=== PATIENT | male | born 1965 | race African-American/Black ===

== ENCOUNTER 2024-02-07 06:02 | Inpatient (IN) ==
--- NOTE | 2024-02-07 06:51 | Emergency Department Note ---
Impression & Plan Nausea & vomiting, Acute upper abdominal pain, Acute GI bleeding ED Provider Note NAME: MONTRELL ZIMMERMAN AGE: 58 SEX: Male INFORMANT: Patient ED PROVIDER(S): Darius Delvalle MD CHIEF COMPLAINT: vomiting PLAN: Disposition: Admitted Outpatient prescription management: none Referral: None. MEDICAL DECISION MAKING: Patient presented because of vomiting. An IV was established. Patient's ECG was nonacute. He was given a dose of IV Pepcid as well as Protonix. The imaging he showed of his vomitus revealed a fairly significant amount. Patient's hemoglobin revealed a moderate anemia and this was much more pronounced than his prior outpatient labs provided by his through his portal. This is concerning given his recent NSAID and aspirin use. He has not had any melena. I am concerned about an acute upper GI bleed. Discussed further management in the hospital and patient and family are in agreement. [facility] Patient was evaluated in the ER and admitted for further management. Care/management discussed with: none Level of care consideration(s): After review of the information above and other included data, I feel the patient requires escalation of care to admission Triage Nursing notes: reviewed and agree them. Vital Signs: reviewed and remarkable for no significant abnormalities Additional History obtained from: Patient's . She provided information regarding his outpatient labs. She also noted the patient had an outpatient liver cyst and bilateral renal cysts abdominal ultrasound revealing a also seen on CT imaging today. Chronic Medical/Social Conditions affecting care: Polycythemia Prior/ Outside/ External records reviewed: Outpatient laboratory records reviewed and his last hemoglobin was 12.9. Differential Diagnosis: Peptic ulcer disease AVM, coagulopathy, colitis, inflammatory bowel disease, malignancy, Mindy-Morris tear, esophagitis, variceal bleed, gastritis, epistaxis, as well as other pathologies. Diagnostics, independently interpreted by me: ECG: Twelve-lead ECG reveals a normal sinus rhythm at [address] abnormality. No ST elevation or depression. Cardiac Monitoring: Cardiac monitoring ordered by me: The patient was placed on continuous cardiac monitoring and observed. It revealed a normal sinus rhythm at 75 beats per minute without ectopy or evidence of dysrhythmia. Medical decision rules: none Imaging studies: CT imaging reveals hepatic and renal cysts. Radiology noted distal esophageal thickening as well as small hiatal hernia. HPI: 58 year old Male arrives for evaluation of vomiting. this started this morning and was described as clotted blood. The patient also notes the following associated symptoms, nausea, upper abdominal pain, pre-syncope, mild breathing difficulties, sweating, dizziness. The patient has taken no medication for relieving factors. Current pain is rated as 2/10. Pain was 4/10. Pt on aspirin and using naprosyn for the last two weeks due to trigger finger. Pt denies LOC, headache, fevers, chills, visual changes, neck pain, chest pain, back pain, melena, hematochezia, urinary symptoms, numbness, weakness, lymphadenopathy, rash, or other complaints. PAST MEDICAL HISTORY: See Below, polycythemia, htn PAST SURGICAL HISTORY: See Below, SOCIAL HISTORY: See Below, non-smoker HOME MEDICATIONS: See Below ALLERGIES: See Below VITALS: See Below PHYSICAL EXAMINATION: GENERAL: Awake, alert, well-appearing, in no distress HENT: Normocephalic, atraumatic. Oropharynx unremarkable. EYES: Normal conjunctiva. Sclera non-icteric. NECK: Inspection normal. Non-tender. Supple. No nuchal rigidity. FROM. No masses. RESPIRATORY: Clear to auscultation. No wheezes. No rales. Normal respiratory effort. CARDIAC: Normal rate. Normal rhythm. No murmurs. No rubs. Extremities warm and well perfused. Pulses equal. No JVD. GI: Soft, non-distended. Epigastric tenderness to palpation. No rebound or guarding. No masses. RECTAL: Deferred. MUSCULOSKELETAL: Atraumatic. Chest examination reveals no tenderness. The back is symmetrical on inspection without obvious abnormality. There is no CVA tenderness to palpation. No joint edema. LOWER EXTREMITIES: Calves are equal size bilaterally and non-tender. No edema. No discoloration. NEURO: Normal sensorium. No sensory or motor deficits noted. SKIN: No rash or jaundice noted. PROCEDURES: none CRITICAL CARE: none OBSERVATION NOTE: none Past Med/Surg History Medical History Dyslipidemia Essential hypertension Polycythemia Surgical History History of knee surgery History of colonoscopy Family History (Updated 02/07/24 @ 10:02 by Sirisha Hidalgo PA-C) Denies family history of Stomach cancer Colorectal cancer Peptic ulcer disease Social History (Updated 02/07/24 @ 09:41 by Sirisha Hidalgo PA-C) Smoking Status: Never smoker Tobacco Type: Cigars Cigarettes Per Day: Rare cigar (last in Jul); Hx Alcohol Use: Yes Alcohol type: wine Alcohol Intake Frequency: Monthly or Less Hx Substance Use: No Preferred Language: [place]alander Communication Ability: Effective Scientific Artist Required: No Beliefs That Will Affect Care: None Current Living Situation: Spouse Feels Safe at Home: Yes Safety Concerns: Feels Safe At This Time Assistive Devices: None Allergies Allergies Allergy/AdvReac Type Severity Reaction Status Date / Time No Known Allergies Allergy Unverified 02/07/24 06:26 Home Meds Home Medications Medication Instructions Recorded Confirmed amlodipine 10 mg tablet 10 mg PO DAILY 02/07/24 02/07/24 aspirin 81 mg tablet,delayed 81 mg PO DAILY 02/07/24 02/07/24 release atorvastatin 10 mg tablet 10 mg PO Q OTHER DAY 02/07/24 02/07/24 hydrochlorothiazide 25 mg tablet 25 mg PO DAILY 02/07/24 02/07/24 lisinopril 20 mg tablet 20 mg PO DAILY 02/07/24 02/07/24 naproxen 500 mg tablet 500 mg PO DAILY 02/07/24 02/07/24 potassium chloride 20 mEq 20 meq PO DAILY 02/07/24 02/07/24 tablet,extended release(part/cryst) Results & Data (ED) Vital Signs Vital Signs - 24 hr 02/07/24 06:05 02/07/24 06:10 02/07/24 06:36 Temperature 36.9 C Temperature Source Oral Pulse Rate 77 77 Pulse Rate [Apical] Pulse Rate [Left Finger] Pulse Rate from SpO2 Sensor Pulse Rhythm [Apical] Pulse Rhythm [Left Finger] Pulse Strength [Left Finger] Respiratory Rate 18 Respiratory Effort / Characteristics Non-Labored Respiratory Depth Normal Respiratory Pattern Regular Blood Pressure 155/80 H Blood Pressure [Right Arm] Blood Pressure Mean 105 Blood Pressure Mean [Right Arm] Blood Pressure Position [Right Arm] Pulse Oximetry 97 98 Pulse Oximetry [Right Index Finger] Oxygen Delivery Method Room Air Room Air Oxygen Flow Rate Sepsis Recent Fever Within 48 Hours No Sepsis New/Unexplained Change in Mental Status N/A Sepsis Action Taken by Nursing No Action Required 02/07/24 09:01 02/07/24 09:57 02/07/24 09:59 Temperature Temperature Source Pulse Rate 72 Pulse Rate [Apical] Pulse Rate [Left Finger] Pulse Rate from SpO2 Sensor 74 73 Pulse Rhythm [Apical] Pulse Rhythm [Left Finger] Pulse Strength [Left Finger] Respiratory Rate 20 Respiratory Effort / Characteristics Respiratory Depth Respiratory Pattern Blood Pressure 139/71 170/84 H 143/79 H Blood Pressure [Right Arm] Blood Pressure Mean 93 112 100 Blood Pressure Mean [Right Arm] Blood Pressure Position [Right Arm] Pulse Oximetry 94 96 Pulse Oximetry [Right Index Finger] Oxygen Delivery Method Oxygen Flow Rate Sepsis Recent Fever Within 48 Hours Sepsis New/Unexplained Change in Mental Status Sepsis Action Taken by Nursing 02/07/24 10:00 02/07/24 10:11 02/07/24 10:22 Temperature Temperature Source Pulse Rate 74 Pulse Rate [Apical] 71 Pulse Rate [Left Finger] Pulse Rate from SpO2 Sensor 77 Pulse Rhythm [Apical] Pulse Rhythm [Left Finger] Pulse Strength [Left Finger] Respiratory Rate 19 20 Respiratory Effort / Characteristics Non-Labored Spontaneous Respiratory Depth Normal Respiratory Pattern Blood Pressure 148/88 H Blood Pressure [Right Arm] 148/88 H Blood Pressure Mean 108 Blood Pressure Mean [Right Arm] 108 Blood Pressure Position [Right Arm] Pulse Oximetry 95 97 Pulse Oximetry [Right Index Finger] 95 Oxygen Delivery Method Room Air Oxygen Flow Rate Sepsis Recent Fever Within 48 Hours Sepsis New/Unexplained Change in Mental Status Sepsis Action Taken by Nursing 02/07/24 10:30 02/07/24 11:10 02/07/24 12:52 Temperature 36.6 C 36.0 C L Temperature Source Temporal Artery Scan Temporal Artery Scan Pulse Rate 83 Pulse Rate [Apical] 84 Pulse Rate [Left Finger] 82 Pulse Rate from SpO2 Sensor 81 Pulse Rhythm [Apical] Regular Pulse Rhythm [Left Finger] Regular Pulse Strength [Left Finger] Normal Respiratory Rate 23 16 28 H Respiratory Effort / Characteristics Non-Labored Spontaneous Non-Labored Spontaneous Respiratory Depth Normal Normal Respiratory Pattern Regular Regular Blood Pressure 145/74 H Blood Pressure [Right Arm] 146/91 H 156/85 H Blood Pressure Mean 97 Blood Pressure Mean [Right Arm] 109 108 Blood Pressure Position [Right Arm] Sitting Semi-fowlers Pulse Oximetry 94 94 95 Pulse Oximetry [Right Index Finger] Oxygen Delivery Method Room Air Oxymask Oxygen Flow Rate 4 Sepsis Recent Fever Within 48 Hours Sepsis New/Unexplained Change in Mental Status Sepsis Action Taken by Nursing 02/07/24 13:00 02/07/24 13:10 02/07/24 13:20 Temperature Temperature Source Pulse Rate Pulse Rate [Apical] 87 89 85 Pulse Rate [Left Finger] Pulse Rate from SpO2 Sensor Pulse Rhythm [Apical] Regular Regular Regular Pulse Rhythm [Left Finger] Pulse Strength [Left Finger] Respiratory Rate 30 H 26 H 19 Respiratory Effort / Characteristics Non-Labored Spontaneous Non-Labored Spontaneous Non-Labored Spontaneous Respiratory Depth Shallow Normal Normal Respiratory Pattern Regular Regular Regular Blood Pressure Blood Pressure [Right Arm] 139/93 143/90 H 148/89 H Blood Pressure Mean Blood Pressure Mean [Right Arm] 108 107 108 Blood Pressure Position [Right Arm] Semi-fowlers Semi-fowlers Semi-fowlers Pulse Oximetry 88 L 87 L 92 Pulse Oximetry [Right Index Finger] Oxygen Delivery Method Room Air Room Air Nasal Cannula Oxygen Flow Rate 2 Sepsis Recent Fever Within 48 Hours Sepsis New/Unexplained Change in Mental Status Sepsis Action Taken by Nursing 02/07/24 13:30 Temperature Temperature Source Pulse Rate Pulse Rate [Apical] 90 Pulse Rate [Left Finger] Pulse Rate from SpO2 Sensor Pulse Rhythm [Apical] Regular Pulse Rhythm [Left Finger] Pulse Strength [Left Finger] Respiratory Rate 20 Respiratory Effort / Characteristics Non-Labored Spontaneous Respiratory Depth Normal Respiratory Pattern Regular Blood Pressure Blood Pressure [Right Arm] 145/80 H Blood Pressure Mean Blood Pressure Mean [Right Arm] 101 Blood Pressure Position [Right Arm] Semi-fowlers Pulse Oximetry 92 Pulse Oximetry [Right Index Finger] Oxygen Delivery Method Nasal Cannula Oxygen Flow Rate 2 Sepsis Recent Fever Within 48 Hours Sepsis New/Unexplained Change in Mental Status Sepsis Action Taken by Nursing Laboratory Data 02/07/24 06:15 02/07/24 06:15 Lab Results 02/07/24 02/07/24 Range/Units 06:15 07:00 WBC 10.10 (4.8-10.8) K/ul RBC 4.97 (4.70-6.10) M/uL Hgb 9.9 L (14.0-18.0) g/dl Hct 34.1 L (42.0-52.0) % MCV 68.6 L (80.0-100.0) fL MCH 19.9 L (25.0-34.0) pg MCHC 29.0 L (32.0-36.0) g/dL RDW Std Deviation 44.4 (36.4-46.3) fL RDW Coeff of Carol 18.8 H (11.5-14.5) % Plt Count 521 H (130-400) K/uL MPV 9.5 (9.4-12.4) fL Immature Gran % (Auto) 0.8 % Neut % (Auto) 67.8 % Lymph % (Auto) 22.2 % Union % (Auto) 6.0 % Eos % (Auto) 2.4 % Baso % (Auto) 0.8 % Neut # (Auto) 6.85 H (1.40-6.50) K/uL Lymph # (Auto) 2.24 (1.20-3.40) K/uL Union # (Auto) 0.61 H (0.11-0.59) K/uL Eos # (Auto) 0.24 (0.00-0.50) K/uL Baso # (Auto) 0.08 (0.00-0.20) K/uL Immature Gran # (Auto) 0.08 (0.01-0.20) K/uL Absolute Nucleated RBC 0.02 (0.00-0.12) K/uL Nucleated RBC % (auto) 0.2 % Polychromasia 1+ Microcytosis Present Ovalocytes 1+ PT 13.2 H (9.0-12.0) Seconds INR 1.2 H (0.9-1.1) APTT 23 (21-31) Seconds PTT Ratio 0.8 Sodium 145 (136-145) mmol/L Potassium 3.1 L (3.5-5.1) mmol/L Chloride 107 (98-107) mmol/L Carbon Dioxide 31 (21-32) mmol/L Anion Gap 7 (3-11) BUN 46 H (6-23) mg/dl Creatinine 1.00 (0.6-1.4) mg/dl Est Cr Clr Drug Dosing 113.6 ml/min Est GFR ( Amer) 95.7 ml/min Est GFR (Non-Af Amer) 82.6 ml/min BUN/Creatinine Ratio 46.0 H (10-20) Glucose 153 H (70-99(Fasting)) mg/dl Calcium 8.5 L (8.6-10.3) mg/dl Magnesium 2.1 (1.7-2.4) mg/dl Total Bilirubin 0.5 (0.2-1.0) mg/dl AST 19 (13-39) U/L ALT 17 (7-52) U/L Alkaline Phosphatase 76 (34-104) U/L Troponin I High Sens 14.1 (0-20) pg/ml Total Protein 5.9 L (6.0-8.3) gm/dl Albumin 3.6 (3.4-5.0) gm/dl Globulin 2.3 L (2.5-4.0) gm/dl Albumin/Globulin Ratio 1.6 (0.9-2) Lipase 28 (11-82) U/L Blood Type O Positive Antibody Screen NEGATIVE Administered Medications Pantoprazole Sodium 40 mg/ (Dextrose) 100 mls @ 20 mls/hr IV Q5H GABRIELE Stop: 03/08/24 07:14 Last Admin: 02/07/24 14:07 Dose: 8 mg/hr, 20 mls/hr Documented By: Infusion: 02/07/24 12:24 Dose: Infused Documented By: Admin: 02/07/24 07:24 Dose: 8 mg/hr, 20 mls/hr Documented By: KT Discontinued Medications Sodium Chloride (Nss) 1,000 mls @ 125 mls/hr IV .Q8H STA Stop: 02/07/24 14:35 Last Infusion: 02/07/24 14:58 Dose: Infused Documented By: Admin: 02/07/24 06:58 Dose: 125 mls/hr Documented By: GALINDO Sodium Chloride (Nss) 500 mls @ 999 mls/hr IV .Q31M GABRIELE Stop: 02/07/24 07:15 Last Infusion: 02/07/24 07:26 Dose: Infused Documented By: Admin: 02/07/24 06:58 Dose: 999 mls/hr Documented By: GALINDO Famotidine (Pepcid 20mg Iv Push) 20 mg in 5 mls @ 2.5 mls/min IV NOW STA Stop: 02/07/24 06:42 Last Admin: 02/07/24 06:58 Dose: 2.5 mls/min Documented By: GALINDO Pantoprazole Sodium 80 mg/ (Dextrose) 120 mls @ 480 mls/hr IV NOW ONE Stop: 02/07/24 07:05 Last Infusion: 02/07/24 08:52 Dose: Infused Documented By: Admin: 02/07/24 07:24 Dose: 480 mls/hr Documented By: KT Pantoprazole Sodium 80 mg/ (Dextrose) 120 mls @ 480 mls/hr IV ONE STA Stop: 02/07/24 07:05 Last Admin: 02/07/24 07:27 Dose: Not Given Documented By: KT Potassium Chloride (K Jeronimo / Wtr) 10 meq in 100 mls @ 100 mls/hr IV Q1H GABRIELE Stop: 02/07/24 13:59 Last Admin: 02/07/24 15:24 Dose: 100 mls/hr Documented By: Infusion: 02/07/24 15:07 Dose: Infused Documented By: Admin: 02/07/24 14:07 Dose: 100 mls/hr Documented By: Infusion: 02/07/24 11:35 Dose: Infused Documented By: Admin: 02/07/24 10:35 Dose: 100 mls/hr Documented By: SOCORRO Ioversol (Optiray 320 100ml) 93 ml IV ONCE ONE Stop: 02/07/24 08:31 Last Admin: 02/07/24 08:23 Dose: 93 ml Documented By: RONDA Pantoprazole Sodium (Pantoprazole Bolus/Drip) 1 each IV NOW STA Stop: 02/07/24 06:52 Last Admin: 02/07/24 07:27 Dose: Not Given Documented By: RACHELLE Imaging Data Radiologist's Impression: Abdomen/Pelvis CT 02/07/24 07:[address] WITH IV CONTRAST CT DOSE: 1479.25 mGy.cm HISTORY: Acute upper abdominal pain with GI bleed upper abd pain, gi bleed TECHNIQUE: Multiaxial CT images of the abdomen and pelvis were performed following the IV administration of 93 cc of Optiray, A dose lowering technique was utilized adhering to the principles of ALARA. COMPARISON STUDY: None. FINDINGS: Clear lung bases. No free air. Unremarkable spleen, pancreas and left adrenal gland. 1.3 cm soft tissue attenuating right adrenal gland nodule. Hepatic cysts measure up to 2.8 cm. Patency of the hepatic and portal veins. Hepatic steatosis. Cholelithiasis without CT evidence of acute cholecystitis. Patency of the hepatic and portal veins. Bilateral renal cysts measure up to 7.3 cm on the left. 1.8 cm lesion of the inferior pole right kidney demonstrates [place]oun[place]field of 16. No hydronephrosis. Prostatomegaly. Unremarkable urinary bladder. No abdominal aortic aneurysm or lymphadenopathy. Small hiatal hernia with mild distal esophageal wall thickening. Mild to moderate colonic fecal retention. Normal appendix. 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 No acute fracture. IMPRESSION: 1. No bowel obstruction or bowel wall thickening. Normal appendix. 2. Small hiatal hernia with mild distal esophageal wall thickening. 3. Bilateral renal cysts. A 1.8 cm intermediate density right renal lesion is suggestive of a probable complex cyst. This could be further evaluated a nonemergent renal ultrasound. 4. Prostatomegaly. ACT 112: Negative or not required by law. The above report was generated using voice recognition software. It may contain grammatical, syntax or spelling errors. Electronically signed by: Shola Sweet M.D. 02/07/2024 8:56 AM Discharge Plan Visit Data Chief Complaint: Vomiting Stated Complaint: Vomiting Blood Clots, Dizziness, Abdominal Pain ED Provider: Darius Delvalle Discharge Problem: Nausea & vomiting, Acute upper abdominal pain, Acute GI bleeding Patient Disposition: Admitted As Inpatient Discharge Instructions Interventions: ED Discharge Assessment Last Done: 02/07/24 09:56
[2024-02-07 06:55] LABS: Basophils # (auto) 0.08 K/uL (0.00-0.20); Basophils % (auto) 0.8 %; Eosinophils # (auto) 0.24 K/uL (0.00-0.50); Eosinophils % (auto) 2.4 %; Hematocrit (blood only) 34.1 % (42.0-52.0); Hemoglobin 9.9 g/dl (14.0-18.0); Immature Granulocytes # (auto) 0.08 K/uL (0.01-0.20); Immature Granulocytes % (auto) 0.8 %; Lymphocytes # (auto) 2.24 K/uL (1.20-3.40); Lymphocytes % (auto) 22.2 %; Mean Corpuscular Hemoglobin 19.9 pg (25.0-34.0); Mean Corpuscular Volume 68.6 fL (80.0-100.0); Monocytes # (auto) 0.61 K/uL (0.11-0.59); Neutrophils # (auto) 6.85 K/uL (1.40-6.50); Neutrophils % (auto) 67.8 %; Nucleated RBC # (auto) 0.02 K/uL (0.00-0.12); Nucleated RBC % (auto) 0.2 %; RDW Coefficient of Variation 18.8 % (11.5-14.5); RDW Standard Deviation 44.4 fL (36.4-46.3); Red Blood Count 4.97 M/uL (4.70-6.10)
[2024-02-07] MEDS: FAMOTIDINE 20MG IV PUSH 20 MG/5 ML SYR IV STA (06:58)
[2024-02-07] MEDS: SODIUM CHLORIDE 0.9% 1,000 ML IV STA (06:58)
[2024-02-07] MEDS: SODIUM CHLORIDE 0.9% 500 ML IV SCH (06:58)
[2024-02-07 07:02] LABS: Mean Platelet Volume 9.5 fL (9.4-12.4); Platelet Count 521 K/uL (130-400)
[2024-02-07 07:13] LABS: Albumin Globulin Ratio 1.6 (0.9-2); Albumin Level 3.6 gm/dl (3.4-5.0); Bilirubin,Total 0.5 mg/dl (0.2-1.0); Calcium 8.5 mg/dl (8.6-10.3); Creatinine Clr Calc Pharmacy 113.6 ml/min; Est GFR (African American) 95.7 ml/min; Est GFR (Non-African American) 82.6 ml/min; Globulin 2.3 gm/dl (2.5-4.0); Potassium 3.1 mmol/L (3.5-5.1); Total Protein 5.9 gm/dl (6.0-8.3)
[2024-02-07 07:19] LABS: Troponin I High Sensitivity 14.1 pg/ml (0-20)
[2024-02-07 07:21] LABS: Microcytosis Present; Ovalocytes 1+; Polychromasia 1+
[2024-02-07] MEDS: PANTOprazole 40 MG in DEXTROSE 5% MINI-B 100 ML IV SCH (07:24)
[2024-02-07] MEDS: PANTOprazole 80 MG in DEXTROSE 5% 100 ML IV ONE (07:24)
[2024-02-07] MEDS: PANTOprazole 80 MG in DEXTROSE 5% 100 ML IV STA (07:27)
[2024-02-07] MEDS: PANTOPRAZOLE BOLUS/DRIP IV STA (07:27)
[2024-02-07 07:46] LABS: INR 1.2 (0.9-1.1); Partial Thromboplastin Ratio 0.8; Partial Thromboplastin Time 23 Seconds (21-31); Prothrombin Time 13.2 Seconds (9.0-12.0)
[2024-02-07] MEDS: OPTIRAY 320 100ml IV ONE (08:23)
--- NOTE | 2024-02-07 08:57 | CT Scan Report ---
ABDOMEN AND PELVIS CT WITH IV CONTRAST CT DOSE: 1479.25 mGy.cm HISTORY: Acute upper abdominal pain with GI bleed upper abd pain, gi bleed TECHNIQUE: Multiaxial CT images of the abdomen and pelvis were performed following the IV administrat ion of 93 cc of Optiray, A dose lowering technique was utilized adhering to the principles of ALARA. COMPARISON STUDY: None. FINDINGS: Clear lung bases. No free air. Unremarkable spleen, pancreas and left adrenal gland. 1.3 cm soft tissue attenuating right adrenal gland nodule. Hepatic cysts measure up to 2.8 cm. Patency of t he hepatic and portal veins. Hepatic steatosis. Cholelithiasis without CT evidence of acute cholecyst itis. Patency of the hepatic and portal veins. Bilateral renal cysts measure up to 7.3 cm on the left. 1.8 cm lesion of the inferior pole right kidn ey demonstrates [place]oun[place]field of 16. No hydronephrosis. Prostatomegaly. Unremarkable urinary bladder. No abdominal aortic aneurysm or lymphadenopathy. Small hiatal hernia with mild distal esophageal wall thickening. Mild to moderate colonic fecal reten tion. Normal appendix. 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 No acute fracture. IMPRESSION: 1. No bowel obstruction or bowel wall thickening. Normal appendix. 2. Small hiatal hernia with mild distal esophageal wall thickening. 3. Bilateral renal cysts. A 1.8 cm intermediate density right renal lesion is suggestive of a probabl e complex cyst. This could be further evaluated a nonemergent renal ultrasound. 4. Prostatomegaly. ACT 112: Negative or not required by law. The above report was generated using voice recognition software. It may contain grammatical, syntax o r spelling errors. Electronically signed by: Shola Sweet M.D. 02/07/2024 8:56 AM
--- NOTE | 2024-02-07 09:02 | History & Physical Report ---
Date of Service February 07, 2024 Assessment & Plan (1) Acute GI bleeding: Plan: This is a 58 y/o male with polycythemia, occasional acid reflux, dyslipidemia, and hypertension who presented to the ED today after an episode of hematemesis this morning. He is on chronic aspirin 81 mg daily and recently started on daily Naprosyn for trigger finger (2 weeks ago). His hemoglobin has dropped from 12.9 three weeks ago to 9.9 today. He denies prior history of transfusion Likely source of GI bleed is peptic ulcer disease but differential includes gastritis, esophagitis, malignancy (less likely), varices (unlikely). Currently, he is hemodynamically stable and has had no further episodes of hematemesis. He denies prior GI history such as PUD or esophagitis. - Observe in PCU for evidence of recurrent/ongoing blood loss - Repeat Hgb later today to monitor for stability - Continue pantoprazole gtt for now - Check H. pylori stool antigen - Consult GI for possible scope - will keep NPO until they are able to evaluate - Labs in the AM - CBC, BMP - Transfuse for Hgb <7 - pt agreeable to transfusion if needed (2) Hypokalemia: Plan: Pt has been taking his oral supplement as directed. Mag level 2.1 - Replete IV today - Recheck tomorrow (3) Polycythemia: Plan: Holding aspirin due to GI bleed (4) Essential hypertension: Plan: Chronic, stable Holding oral meds for now - PRN hydralazine for SBP >175 (5) Dyslipidemia: Plan: Chronic, stable Holding statin while NPO Plan Pt seen and reviewed with collaborating physician, Dr. Samayoa. Plan of care discussed and as outlined above. Code Status: Full code DVT Prophylaxis: SCDs due to GI bleed Colin Hidalgo PA-C History of Present Illness Chief Complaint: vomiting blood Primary Care Provider: YAMEL SCHMIDT This is a 58 y/o male from out of the area who has polycythemia, occasional acid reflux, dyslipidemia, and hypertension and who presented to the ED today after an episode of hematemesis this morning. Pt has a history polycythemia for which he takes aspirin daily - his last Hgb three weeks ago was 12.9. He does require phlebotomy approximately every other month. He was recently started on Naprosyn 500 mg by his orthopedic provider for trigger finger. Only taking daily although prescribed BID. Has not noted any GI distress with taking these medications. He reports feeling off last night when he went to bed, didn't feel right overnight but couldn't localize any specific symptoms. Did note some trouble breathing, which he initially attributed to his CPAP but didn't seem to improve much with taking his CPAP off. When got up around 4:30 am, he got dizzy, nauseated, and diaphoretic, then vomited blood. He notes some vague mid-abdominal discomfort and that his abdomen is more distended than usual. Denies heartburn. Uses PRN Tums for occasional reflux but doesn't taking anything consistently for GERD. Denies melena, hematochezia, or change in bowel pattern. Symptoms seem to have improved somewhat since episode of emesis. He notes high life stresses right now. His last colonoscopy was Jan 10, 2020 - per pt, that was normal. He denies prior EGD or history of PUD. No history of H. pylori. Allergies Allergy/AdvReac Type Severity Reaction Status Date / Time No Known Allergies Allergy Unverified 02/07/24 06:26 Home Medications Medication Instructions Recorded Confirmed Type amlodipine 10 mg tablet 10 mg PO DAILY 02/07/24 02/07/24 History aspirin 81 mg tablet,delayed 81 mg PO DAILY 02/07/24 02/07/24 History release atorvastatin 10 mg tablet 10 mg PO Q OTHER DAY 02/07/24 02/07/24 History hydrochlorothiazide 25 mg tablet 25 mg PO DAILY 02/07/24 02/07/24 History lisinopril 20 mg tablet 20 mg PO DAILY 02/07/24 02/07/24 History naproxen 500 mg tablet 500 mg PO DAILY 02/07/24 02/07/24 History potassium chloride 20 mEq 20 meq PO DAILY 02/07/24 02/07/24 History tablet,extended release(part/cryst) Past Med/Surg History Medical History Dyslipidemia Essential hypertension Polycythemia Surgical History History of knee surgery History of colonoscopy Family History (Updated 02/07/24 @ 10:02 by Sirisha Hidalgo PA-C) Denies family history of Stomach cancer Colorectal cancer Peptic ulcer disease Social History (Updated 02/07/24 @ 09:41 by Sirisha Hidalgo PA-C) Smoking Status: Never smoker Tobacco Type: Cigars Cigarettes Per Day: Rare cigar (last in Jul); Hx Alcohol Use: Yes Alcohol type: wine Alcohol Intake Frequency: Monthly or Less Hx Substance Use: No Preferred Language: Spanish Communication Ability: Effective Storage Facility Housekeeper Required: No Beliefs That Will Affect Care: None Current Living Situation: Spouse Feels Safe at Home: Yes Safety Concerns: Feels Safe At This Time Review of Systems Review of Systems: All systems reviewed & are unremarkable except as noted in HPI & below Constitutional: + sweats; no fever and no chills Eyes: no diplopia Ear, Nose, Mouth, Throat: no nasal congestion and no sore throat Respiratory: as per Subjective / HPI; no cough Cardiovascular: + lightheadedness; no chest pain, no pal pitations and no edema Gastrointestinal: as per Subjective / HPI Genitourinary: no dysuria or no hematuria Musculoskeletal: + problem reported (recent corticosteroi d injection for trigger finger) Integumentary: no rash and no yellowing of the skin Neurologic: no syncope and no confusion Physical Exam Physical Exam: For details of the physical exam, please see the physician note. Results & Data Results & Data Vital Signs (Past 12 Hours) Vital Signs Temp Pulse Resp BP Pulse Ox O2 Del Method 02/07/24 06:36 98 Room Air 02/07/24 06:10 77 02/07/24 06:05 36.9 C 77 18 155/80 H 97 Room Air Laboratory Results Laboratory Results - last 24 hr 02/07/24 02/07/24 06:15 07:00 WBC 10.10 RBC 4.97 Hgb 9.9 L Hct 34.1 L MCV 68.6 L MCH 19.9 L MCHC 29.0 L RDW Std Deviation 44.4 RDW Coeff of Carol 18.8 H Plt Count 521 H MPV 9.5 Immature Gran % (Auto) 0.8 Neut % (Auto) 67.8 Lymph % (Auto) 22.2 [place] % (Auto) 6.0 Eos % (Auto) 2.4 Baso % (Auto) 0.8 Neut # (Auto) 6.85 H Lymph # (Auto) 2.24 [place] # (Auto) 0.61 H Eos # (Auto) 0.24 Baso # (Auto) 0.08 Immature Gran # (Auto) 0.08 Absolute Nucleated RBC 0.02 Nucleated RBC % (auto) 0.2 Polychromasia 1+ Microcytosis Present Ovalocytes 1+ PT 13.2 H INR 1.2 H APTT 23 PTT Ratio 0.8 Sodium 145 Potassium 3.1 L Chloride 107 Carbon Dioxide 31 Anion Gap 7 BUN 46 H Creatinine 1.00 Est Cr Clr Drug Dosing 113.6 Est GFR ( Amer) 95.7 Est GFR (Non-Af Amer) 82.6 BUN/Creatinine Ratio 46.0 H Glucose 153 H Calcium 8.5 L Total Bilirubin 0.5 AST 19 ALT 17 Alkaline Phosphatase 76 Troponin I High Sens 14.1 Total Protein 5.9 L Albumin 3.6 Globulin 2.3 L Albumin/Globulin Ratio 1.6 Lipase 28 Blood Type O Positive Antibody Screen NEGATIVE Diagnostic Findings Abdomen/Pelvis CT 02/07/24 07:[address] WITH IV CONTRAST CT DOSE: 1479.25 mGy.cm HISTORY: Acute upper abdominal pain with GI bleed upper abd pain, gi bleed TECHNIQUE: Multiaxial CT images of the abdomen and pelvis were performed following the IV administration of 93 cc of Optiray, A dose lowering technique was utilized adhering to the principles of ALARA. COMPARISON STUDY: None. FINDINGS: Clear lung bases. No free air. Unremarkable spleen, pancreas and left adrenal gland. 1.3 cm soft tissue attenuating right adrenal gland nodule. Hepatic cysts measure up to 2.8 cm. Patency of the hepatic and portal veins. Hepatic steatosis. Cholelithiasis without CT evidence of acute cholecystitis. Patency of the hepatic and portal veins. Bilateral renal cysts measure up to 7.3 cm on the left. 1.8 cm lesion of the inferior pole right kidney demonstrates [place]oun[place] of 16. No hydronephrosis. Prostatomegaly. Unremarkable urinary bladder. No abdominal aortic aneurysm or lymphadenopathy. Small hiatal hernia with mild distal esophageal wall thickening. Mild to moderate colonic fecal retention. Normal appendix. 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 No acute fracture. IMPRESSION: 1. No bowel obstruction or bowel wall thickening. Normal appendix. 2. Small hiatal hernia with mild distal esophageal wall thickening. 3. Bilateral renal cysts. A 1.8 cm intermediate density right renal lesion is suggestive of a probable complex cyst. This could be further evaluated a nonemergent renal ultrasound. 4. Prostatomegaly. ACT 112: Negative or not required by law. The above report was generated using voice recognition software. It may contain grammatical, syntax or spelling errors. Electronically signed by: Shola Sweet M.D. 02/07/2024 8:56 AM Medications Administered Sodium Chloride (Nss) 1,000 mls @ 125 mls/hr IV .Q8H STA Stop: 02/07/24 14:35 Last Admin: 02/07/24 06:58 Dose: 125 mls/hr Documented By: GALINDO Pantoprazole Sodium 40 mg/ (Dextrose) 100 mls @ 20 mls/hr IV Q5H GABRIELE Stop: 03/08/24 07:14 Last Admin: 02/07/24 07:24 Dose: 8 mg/hr, 20 mls/hr Documented By: RACHELLE Discontinued Medications Sodium Chloride (Nss) 500 mls @ 999 mls/hr IV .Q31M GABRIELE Stop: 02/07/24 07:15 Last Infusion: 02/07/24 07:26 Dose: Infused Documented By: Admin: 02/07/24 06:58 Dose: 999 mls/hr Documented By: GALINDO Famotidine (Pepcid 20mg Iv Push) 20 mg in 5 mls @ 2.5 mls/min IV NOW STA Stop: 02/07/24 06:42 Last Admin: 02/07/24 06:58 Dose: 2.5 mls/min Documented By: GALINDO Pantoprazole Sodium 80 mg/ (Dextrose) 120 mls @ 480 mls/hr IV NOW ONE Stop: 02/07/24 07:05 Last Infusion: 02/07/24 08:52 Dose: Infused Documented By: Admin: 02/07/24 07:24 Dose: 480 mls/hr Documented By: RACHELLE Pantoprazole Sodium 80 mg/ (Dextrose) 120 mls @ 480 mls/hr IV ONE STA Stop: 02/07/24 07:05 Last Admin: 02/07/24 07:27 Dose: Not Given Documented By: RACHELLE Ioversol (Optiray 320 100ml) 93 ml IV ONCE ONE Stop: 02/07/24 08:31 Last Admin: 02/07/24 08:23 Dose: 93 ml Documented By: RONDA Pantoprazole Sodium (Pantoprazole Bolus/Drip) 1 each IV NOW STA Stop: 02/07/24 06:52 Last Admin: 02/07/24 07:27 Dose: Not Given Documented By: RACHELLE Supervising Physician Co-Signing Physician Notes I have seen and discussed the case with the collaborating advanced practitioner. I agree with the above H&P. I have reviewed and confirmed the patients medical history, the findings on physical examination, and the patients diagnosis and treatment plan with Rocky CLARK and agree with the information documented. In short, Mr. Tiwari is a 58 year old gentleman with history of HLD, HTN, GERD, and polycythemia with monthly phlebotomy who is admitted for concerns of hematemesis. Patient reports taking daily asa 81mg and newly 500mg naproxen daily for pain in right 4th digit s/p steroid injection. Patient denies any recent epigastric pain. Notes he "felt strange" last evening before waking up and vomiting clots. He denies any fevers, chills, active GERD symptoms, or other acute concerns. No history of EGB. No family history of GI concerns. CScope in 2019 normal. Endorses some bloat. Denies melena, diarrhea, constipation, or other issues. GENERAL APPEARANCE: AxOx4, generally well-appearing male, no acute distress. HEENT: NC, AT. MMM. EOMI, clear conjunctiva, oropharynx clear. NECK: Supple without lymphadenopathy. No stiffness or restricted ROM. HEART: Normal rate and regular rhythm, normal S1/S1, no m/r/g LUNGS: CTAB, moving air well. No crackles or wheezes are heard. ABDOMEN: Soft, nontender, no obvious distention with good bowel sounds heard. BACK: No CVAT, no obvious deformity. EXTREMITIES: Without cyanosis, clubbing or edema. NEUROLOGICAL: Grossly nonfocal. Alert and oriented, moving all 4 extremities. Skin: Warm and dry without any rash. #Hematemesis #Acute blood loss anemia, c/f GIB #Polycythemia Vera #Prior GERD -On daily asa for PCV. Recently on naproxen 500mg daily x 2 weeks -No epigastric pain, nausea vomiting leading up to episode -PPI drip NPO until GI consult Hold meds as above Trend CBC, transfuse for hgb <7 or symptomatic anemia Montior on tele PCU #HTN Hold home PO medications, amlodipine, HCTZ, lisinopril -Hydralazine prn for BP > 175 #Hypokalemia -Replace lytes prn I spent a total of 25 minutes coordinating, documenting, and providing care for this patient excluding time spent in the performance of separately billed services. All of the aforementioned completed outside of collaborating with the assigned advanced practitioner for a full treatment plan. I have reviewed the advanced practitioner's documentation, and I agree with, and take responsibility for the plan of care
[2024-02-07 09:35] LABS: Magnesium 2.1 mg/dl (1.7-2.4)
--- NOTE | 2024-02-07 10:20 | Gastrointestinal Consultation ---
Date of Consultation February 07, 2024 Assessment & Plan (1) Acute GI bleedin58 year old male presenting with one episode of hematemesis, reported 3 pt drop in HGB from recent OP labs, on daily ASA recently started on once daily naproxen. No history of liver disease. DDX discussed: PUD vs gastritis vs other NPO EGD timing to be determined IV PPI bolus and drip Trend H&H Transfuse PRN per primary service Monitor and document GI output We appreciate assistance in the management of any serological abnormality and corrections to include: hemoglobin >7, INR <2, platelets >50,000, potassium levels >3.5 but <5.3, and sodium levels within 5 points of the reference range prior to endoscopic evaluation. Thank you for allowing us to participate in the care of this patient. Please call with any acute changes, questions or concerns. Please see addendum below with additional recommendation from my supervising physician. Supervising Physician Co-Signing Physician Notes I personally saw and evaluated the patient on 02/07/2024 with SIA Pelletier and agree with her findings and plan of care. Abdomen with mild tenderness to palpation. 58 y/o M who lives in [place] visiting here currently admitted with 1 episode of hematemesis earlier this AM. He has a history of polycythemia and HTN. He takes an asa daily and was recently started on Naproxen 1 week ago for a trigger finger which he has been taking daily. This AM he had 1 large episode of hematemesis but none since that time. Denies melena or hematochezia. Hgb on arrival 9.9 which he states is down 3 grams from his baseline. BUN elevated to 46 with Cr of 1. Never had an EGD before but reports a colonoscopy in 2019. Concern for UGI bleeding with hematemesis and elevated BUN. Possibly due to PUD as he has been taking daily NSAIDs. Will plan for urgent EGD today. Remain NPO. PPI 40 mg BID. Trend H/H and transfuse for hgb <7. Stop all NSAIDs. Marjorie Garcia, Gastroenterology and Hepatology History of Present Illness Reason for Consultation: hematemesis Requesting Physician: Danita Attending Physician: Toya Samayoa MD History of Present Illness 58 year old male visiting from [place] with history of polycythemia and hypertension admitted with hematemesis. Family at bedside who aid in history. Notes that he was in his typical state of health until he developed GI upset. Notes this was following by large amount of emesis which was bloody. No black emesis. Notes that he has persistent GI upset. No black or bloody stools ASA daily Taking Naproxen for about a week Drinks wine occasionally No tobacco No EGD Had a colon at OSH in 2019 No reported history of liver disease Allergies Allergy/AdvReac Type Severity Reaction Status Date / Time No Known Allergies Allergy Unverified 02/07/24 06:26 Home Medications Medication Instructions Recorded Confirmed Type amlodipine 10 mg tablet 10 mg PO DAILY 02/07/24 02/07/24 History aspirin 81 mg tablet,delayed 81 mg PO DAILY 02/07/24 02/07/24 History release atorvastatin 10 mg tablet 10 mg PO Q OTHER DAY 02/07/24 02/07/24 History hydrochlorothiazide 25 mg tablet 25 mg PO DAILY 02/07/24 02/07/24 History lisinopril 20 mg tablet 20 mg PO DAILY 02/07/24 02/07/24 History naproxen 500 mg tablet 500 mg PO DAILY 02/07/24 02/07/24 History potassium chloride 20 mEq 20 meq PO DAILY 02/07/24 02/07/24 History tablet,extended release(part/cryst) Patient History Medical History Dyslipidemia Essential hypertension Polycythemia Surgical History History of knee surgery History of colonoscopy Family History (Updated 02/07/24 @ 10:02 by Sirisha Hidalgo PA-C) Denies family history of Stomach cancer Colorectal cancer Peptic ulcer disease Social History (Updated 02/07/24 @ 09:41 by Sirisha Hidalgo PA-C) Smoking Status: Never smoker Tobacco Type: Cigars Cigarettes Per Day: Rare cigar (last in Jul); Hx Alcohol Use: Yes Alcohol type: wine Alcohol Intake Frequency: Monthly or Less Hx Substance Use: No Preferred Language: Japanese Communication Ability: Effective Web Architect Required: No Beliefs That Will Affect Care: None Current Living Situation: Spouse Feels Safe at Home: Yes Safety Concerns: Feels Safe At This Time Review of Systems Review of Systems: All systems reviewed & are unremarkable except as noted in HPI & below Physical Exam Constitutional: WD/WN, vitals as above Respiratory: normal respiratory effort, lungs clear to auscultation Cardiovascular: Rate/Rhythm: regular rate and regular rhythm Gastrointestinal (Abdomen): Percussion/Palpation: abdomen soft; abdomen nontender, no guarding and abdomen not rigid Skin: no rashes, warm and dry Results & Data Vital Signs (Past 12 Hours) Vital Signs Temp Pulse Resp BP Pulse Ox Pulse Ox O2 Del Method 02/07/24 10:11 95 02/07/24 10:00 74 19 148/88 H 95 02/07/24 09:59 143/79 H 96 02/07/24 09:57 170/84 H 94 02/07/24 09:01 72 20 139/71 02/07/24 06:36 98 Room Air 02/07/24 06:10 77 02/07/24 06:05 36.9 C 77 18 155/80 H 97 Room Air Laboratory Results 02/07/24 02/07/24 Range/Units 07:00 06:15 WBC 10.10 (4.8-10.8) K/ul RBC 4.97 (4.70-6.10) M/uL Hgb 9.9 L (14.0-18.0) g/dl Hct 34.1 L (42.0-52.0) % MCV 68.6 L (80.0-100.0) fL MCH 19.9 L (25.0-34.0) pg MCHC 29.0 L (32.0-36.0) g/dL RDW Std Deviation 44.4 (36.4-46.3) fL RDW Coeff of Carol 18.8 H (11.5-14.5) % Plt Count 521 H (130-400) K/uL MPV 9.5 (9.4-12.4) fL Immature Gran % (Auto) 0.8 % Neut % (Auto) 67.8 % Lymph % (Auto) 22.2 % [place] % (Auto) 6.0 % Eos % (Auto) 2.4 % Baso % (Auto) 0.8 % Neut # (Auto) 6.85 H (1.40-6.50) K/uL Lymph # (Auto) 2.24 (1.20-3.40) K/uL [place] # (Auto) 0.61 H (0.11-0.59) K/uL Eos # (Auto) 0.24 (0.00-0.50) K/uL Baso # (Auto) 0.08 (0.00-0.20) K/uL Immature Gran # (Auto) 0.08 (0.01-0.20) K/uL Absolute Nucleated RBC 0.02 (0.00-0.12) K/uL Nucleated RBC % (auto) 0.2 % Polychromasia 1+ Microcytosis Present Ovalocytes 1+ PT 13.2 H (9.0-12.0) Seconds INR 1.2 H (0.9-1.1) APTT 23 (21-31) Seconds PTT Ratio 0.8 Sodium 145 (136-145) mmol/L Potassium 3.1 L (3.5-5.1) mmol/L Chloride 107 (98-107) mmol/L Carbon Dioxide 31 (21-32) mmol/L Anion Gap 7 (3-11) BUN 46 H (6-23) mg/dl Creatinine 1.00 (0.6-1.4) mg/dl Est Cr Clr Drug Dosing 113.6 ml/min Est GFR ( Amer) 95.7 ml/min Est GFR (Non-Af Amer) 82.6 ml/min BUN/Creatinine Ratio 46.0 H (10-20) Glucose 153 H (70-99(Fasting)) mg/dl Calcium 8.5 L (8.6-10.3) mg/dl Magnesium 2.1 (1.7-2.4) mg/dl Total Bilirubin 0.5 (0.2-1.0) mg/dl AST 19 (13-39) U/L ALT 17 (7-52) U/L Alkaline Phosphatase 76 (34-104) U/L Troponin I High Sens 14.1 (0-20) pg/ml Total Protein 5.9 L (6.0-8.3) gm/dl Albumin 3.6 (3.4-5.0) gm/dl Globulin 2.3 L (2.5-4.0) gm/dl Albumin/Globulin Ratio 1.6 (0.9-2) Lipase 28 (11-82) U/L Blood Type O Positive Antibody Screen NEGATIVE
[2024-02-07] MEDS: POTASSIUM CHLORIDE / WTR 10 MEQ/100 ML PLCT IV SCH (10:35)
--- NOTE | 2024-02-07 11:34 | Anesthesiology Consultation ---
Date of Service February 07, 2024 History Surgery Operation Date: 02/07/24 17:00 Proposed Procedures p Esophagogastroduodenoscopy Jose Garcia, Height/Weight Height: 6 ft 2 in Weight: 129.3 kg Allergies Allergy/AdvReac Type Severity Reaction Status Date / Time No Known Allergies Allergy Unverified 02/07/24 06:26 Medications Home Medications Medication Instructions Recorded Confirmed Last Taken amlodipine 10 mg tablet 10 mg PO DAILY 02/07/24 02/07/24 02/06/24 aspirin 81 mg tablet,delayed 81 mg PO DAILY 02/07/24 02/07/24 02/06/24 release atorvastatin 10 mg tablet 10 mg PO Q OTHER DAY 02/07/24 02/07/24 02/05/24 hydrochlorothiazide 25 mg tablet 25 mg PO DAILY 02/07/24 02/07/24 02/06/24 lisinopril 20 mg tablet 20 mg PO DAILY 02/07/24 02/07/24 02/06/24 naproxen 500 mg tablet 500 mg PO DAILY 02/07/24 02/07/24 02/06/24 potassium chloride 20 mEq 20 meq PO DAILY 02/07/24 02/07/24 02/06/24 tablet,extended release(part/cryst) Active Medications Generic Name Dose Route Start Last Admin Trade Name Oumarq PRN Reason Stop Dose Admin Sodium Chloride 1,000 mls @ 125 mls/hr 02/07/24 06:36 02/07/24 06:58 Nss IV 02/07/24 14:35 125 mls/hr .Q8H STA Administration Pantoprazole Sodium 40 mg/ 100 mls @ 20 mls/hr 02/07/24 07:15 02/07/24 07:24 Dextrose IV 03/08/24 07:14 8 mg/hr Q5H GABRIELE 20 mls/hr Administration 8 MG/HR Potassium Chloride 10 meq in 100 mls @ 100 mls/hr 02/07/24 10:00 02/07/24 10:35 K Jeronimo / Wtr IV 02/07/24 13:59 100 mls/hr Q1H GABRIELE Administration NPO Date Last Intake of Fluids: 02/07/24 Time Last Intake of Fluids: 05:00 Date Last Intake of Solids: 02/06/24 Time Last Intake of Solids: 23:00 Past Medical History Medical History Dyslipidemia Essential hypertension Polycythemia Past Family History Family History (Updated 02/07/24 @ 10:02 by Sirisha Hidalgo PA-C) Denies family history of Stomach cancer Colorectal cancer Peptic ulcer disease Past Surgical History Surgical History History of knee surgery History of colonoscopy Social History Smoking Status: Never smoker Smoking cigarettes per day: Rare cigar (last in Jul) Hx Alcohol Use: Yes Alcohol type: wine alcohol intake frequency: a few times a month Hx Substance Use: No Physical Exam Vital Signs Last Vital Signs Temp 36.6 C 02/07/24 11:10 Pulse 82 02/07/24 11:10 Resp 16 02/07/24 11:10 BP 146/91 H 02/07/24 11:10 Pulse Ox 94 02/07/24 11:10 O2 Del Method Room Air 02/07/24 11:10 Testing Laboratory Results 02/07/24 06:15 02/07/24 06:15 PT 13.2 Seconds (9.0-12.0) H 02/07/24 06:15 INR 1.2 (0.9-1.1) H 02/07/24 06:15 APTT 23 Seconds (21-31) 02/07/24 06:15 Blood Type O Positive 02/07/24 07:00 Antibody Screen NEGATIVE 02/07/24 07:00
[2024-02-07] MEDS ORDERED: SUCCINYLCHOLINE CHLORIDE 20 MG/ML 10 ML VIAL IV ONE (11:54)
[2024-02-07] MEDS ORDERED: fentaNYL citrate PF 100 MCG/2 ML VIAL ONE (11:54)
[2024-02-07] MEDS ORDERED: LIDOCAINE 2% 2 ML VIAL/AMP(20MG/ML) INFIL ONE (11:54)
[2024-02-07] MEDS ORDERED: MIDAZOLAM HCL 1 MG/ML 2ML VIAL ONE (11:54)
[2024-02-07] MEDS ORDERED: PROPOFOL IV EMULSION 10 MG/ML 20 ML VIAL IV ONE (11:54)
[2024-02-07] MEDS ORDERED: ONDANSETRON INJ 2 MG/ML 2 ML VIAL ONE (12:33)
--- NOTE | 2024-02-07 12:49 | GI REPORT ---
Patient Name: Escobar Tiwari Procedure Date: 02/07/2024 11:22 AM Date of : 1965 Admit Type: Inpatient Age: 58 Gender: Male Attending MD: Marjorie Garcia DO, Procedure: Upper GI endoscopy Providers: Marjorie Garcia DO Referring MD: Toya Samayoa Md Indications: Hematemesis Patient Profile: This is a 58 year old male. Refer to note in patient chart for documentation of history and physical. Medicines: General Anesthesia Complications: No immediate complications. Estimated Blood Loss: Estimated blood loss was minimal. Procedure: Pre-Anesthesia Assessment: - Prior to the procedure, a History and Physical was performed, and patient medications and allergies were reviewed. The risks and benefits of the procedure and the sedation options and risks were discussed with the patient. All questions were answered and informed consent was obtained. Patient identification and proposed procedure were verified by the physician, the nurse and the cheese cook in the procedure room. Mental Status Examination: alert and oriented. Airway Examination: Mallampati Class II (the uvula but not tonsillar pillars visualized). Respiratory Examination: clear to auscultation. CV Examination: RRR, no murmurs, no S3 or S4. Prophylactic Antibiotics: The patient does not require prophylactic antibiotics. Prior Anticoagulants: The patient has taken no anticoagulant or antiplatelet agents. ASA Grade Assessment: III - A patient with severe systemic disease. After reviewing the risks and benefits, the patient was deemed in satisfactory condition to undergo the procedure. The anesthesia plan was to use general anesthesia. Immediately prior to administration of medications, the patient was re-assessed for adequacy to receive sedatives. The physical status of the patient was re-assessed after the procedure. After obtaining informed consent, the endoscope was passed under direct vision. Throughout the procedure, the patient's blood pressure, pulse, and oxygen saturations were monitored continuously. The Endoscope was introduced through the mouth, and advanced to the second part of duodenum. The upper GI endoscopy was accomplished without difficulty. The patient tolerated the procedure well. Findings: The Z-line was found 40 cm from the incisors. LA Grade D (one or more mucosal breaks involving at least 75% of esophageal circumference) esophagitis with recent bleeding was found 40 cm from the incisors. For hemostasis, one hemostatic clip was successfully placed. 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 There was no bleeding at the end of the procedure. The exam of the esophagus was otherwise normal. Hematin (altered blood/czvcpu-mmpyyy-iktj material) was found in the entire examined stomach. Hematin (altered blood/fvaktq-qjpjek-xnlf material) was found in the duodenal bulb and in the second portion of the duodenum. Impression: - Z-line, 40 cm from the incisors. - LA Grade D esophagitis with recent bleeding. There was one area at the 3 o'clock position that was deeply cratered with a visible vessel with adherent clot. This is the likely source of his hematemesis. 1 Clip was placed. 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 - Hematin (altered blood/rvwgbc-txawmy-niqt material) in the entire stomach. Unable to clear the cardia or fundus to assess for any ulcers here as it was covered in thick clot. - Old clot and blood in the duodenal bulb and in the second portion of the duodenum. - No specimens collected. Recommendation: - [facility] care. - NPO. - IV PPI gtt for the next 48-72 hours and then PPI 40 mg BID for the next 12 weeks at minimum. - Trend H/H and transfuse for hgb <7 - Needs repeat EGD in 12 weeks to assess for esophagitis/ulceration healing. - Stop all NSAIDs immediately - Of note, when patient had intubation there was bleeding around the vocal cords from the intubation and upon scope removal the area around the vocal cords was still bleeding. If he does have any further bloody output/hematemesis it could be due to area around his vocal cords as well. Marjorie Garcia, 02/07/2024 12:49:12 PM Note Initiated On: 02/07/2024 11:22 AM Number of Addenda: 0 I attest to the content of the Intraoperative Record and orders documented therein, exceptions below {[id number]}
--- NOTE | 2024-02-07 12:52 | Communication Note ---
Date of Service: February 07, 2024 EGD completed today with findings below: Impression: - Z-line, 40 cm from the incisors. - LA Grade D esophagitis with recent bleeding. There was one area at the 3 o'clock position at the GE junction that was deeply cratered with a visible vessel with adherent clot. This is the likely source of his hematemesis. 1 Clip was placed. 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 - Hematin (altered blood/punfgm-eewpyk-ivfn material) in the entire stomach. Unable to clear the cardia or fundus to assess for any ulcers here as it was covered in thick clot. - Old clot and blood in the duodenal bulb and in the second portion of the duodenum. - No specimens collected. Recommendation: - Return [facility] to [facility] care. - NPO. - IV PPI gtt for the next 48-72 hours and then PPI 40 mg BID for the next 12 weeks at minimum. - Trend H/H and transfuse for hgb <7 - Needs repeat EGD in 12 weeks to assess for esophagitis/ulceration healing. He lives in [place] so PCP will need to arrange near home. - Stop all NSAIDs immediately - Of note, when patient had intubation there was bleeding around the vocal cords from the intubation and upon scope removal the area around the vocal cords was still bleeding. If he does have any further bloody output/hematemesis it could be due to area around his vocal cords as well. Marjorie Garcia, DO Gastroenterology and Hepatology
--- NOTE | 2024-02-07 13:24 | Anesthesiology Progress Note ---
Date of Service February 07, 2024 Anesthesia Post Procedure Vital Signs Vital Signs: Temp Pulse Pulse Pulse Resp BP BP 02/07/24 13:10 89 26 H 143/90 H 02/07/24 13:00 87 30 H 139/93 02/07/24 12:52 36.0 C L 84 28 H 156/85 H 02/07/24 11:10 36.6 C 82 16 146/91 H 02/07/24 10:30 83 23 145/74 H 02/07/24 10:22 71 20 148/88 H 02/07/24 10:11 02/07/24 10:00 74 19 148/88 H 02/07/24 09:59 143/79 H 02/07/24 09:57 170/84 H 02/07/24 09:01 72 20 139/71 02/07/24 06:36 02/07/24 06:10 77 02/07/24 06:05 36.9 C 77 18 155/80 H Pulse Ox Pulse Ox O2 Del Method O2 Flow Rate 02/07/24 13:10 87 L Room Air 02/07/24 13:00 88 L Room Air 02/07/24 12:52 95 Oxymask 4 02/07/24 11:10 94 Room Air 02/07/24 10:30 94 02/07/24 10:22 97 Room Air 02/07/24 10:11 95 02/07/24 10:00 95 02/07/24 09:59 96 02/07/24 09:57 94 02/07/24 09:01 02/07/24 06:36 98 Room Air 02/07/24 06:10 02/07/24 06:05 97 Room Air Pain Intensity Abdomen: Pain Intensity: 2 Transfer of Care Handoff Completed per policy Notes Mental Status: alert / awake / arousable and participated in evaluation Nausea / Vomiting: adequately controlled Pain: adequately controlled Airway Patency, RR, SpO2: stable & adequate BP & HR: stable & adequate Hydration State: stable & adequate Anesthetic Complications: no major complications apparent and Pt Satisfied with anesthetic care
[2024-02-07 16:27] LABS: Hematocrit (blood only) 34.3 % (42.0-52.0); Hemoglobin 9.7 g/dl (14.0-18.0)
[2024-02-07] MEDS ORDERED: Nursing to Pharmacy Communication SCH (16:45)
[2024-02-08] MEDS: PROPOFOL IV EMULSION 10 MG/ML 20 ML VIAL IV ONE (03:38)
[2024-02-08] MEDS: LIDOCAINE 2% 2 ML VIAL/AMP(20MG/ML) INFIL ONE (03:38)
--- NOTE | 2024-02-08 05:48 | Electrocardiogram Report ---
Test Reason : Blood Pressure : / mmHG Vent. Rate : 074 BPM Atrial Rate : 074 BPM P-R Int : 144 ms QRS Dur : 104 ms QT Int : 404 ms P-R-T Axes : -07 -27 -31 degrees QTc Int : 448 ms Normal sinus rhythm Nonspecific ST and T wave abnormality Possible Lateral infarct Abnormal ECG No previous ECGs available Confirmed by Jude Be ([id number]) on 02/08/2024 5:48:04 AM Referred By: REFERRED SELF Confirmed By:Jude Be
[2024-02-08 07:00] LABS: Hematocrit (blood only) 30.6 % (42.0-52.0); Hemoglobin 8.8 g/dl (14.0-18.0); Mean Corpuscular Hgb Conc 28.8 g/dL (32.0-36.0); Mean Corpuscular Volume 69.4 fL (80.0-100.0); Mean Platelet Volume 9.2 fL (9.4-12.4); Platelet Count 448 K/uL (130-400); RDW Coefficient of Variation 18.8 % (11.5-14.5); RDW Standard Deviation 45.7 fL (36.4-46.3); Red Blood Count 4.41 M/uL (4.70-6.10); White Blood Count 10.63 K/ul (4.8-10.8)
[2024-02-08 07:14] LABS: BUN Creatinine Ratio 26.5 (10-20); Calcium 8.1 mg/dl (8.6-10.3); Creatinine Clr Calc Pharmacy 112.1 ml/min; Est GFR (African American) 93.5 ml/min; Est GFR (Non-African American) 80.6 ml/min; Potassium 2.9 mmol/L (3.5-5.1)
[2024-02-08 07:18] LABS: Basophils # (auto) 0.08 K/uL (0.00-0.20); Basophils % (auto) 0.8 %; Eosinophils # (auto) 0.25 K/uL (0.00-0.50); Eosinophils % (auto) 2.4 %; Immature Granulocytes # (auto) 0.07 K/uL (0.01-0.20); Immature Granulocytes % (auto) 0.7 %; Lymphocytes # (auto) 2.25 K/uL (1.20-3.40); Lymphocytes % (auto) 21.2 %; Monocytes # (auto) 0.63 K/uL (0.11-0.59); Monocytes % (auto) 5.9 %; Neutrophils # (auto) 7.35 K/uL (1.40-6.50); Polychromasia 1+
[2024-02-08] MEDS ORDERED: SODIUM CHLORIDE 0.9% 250 ML IV PRN (08:04)
[2024-02-08] MEDS: POTASSIUM CHLORIDE / WTR 10 MEQ/100 ML PLCT IV SCH (08:13)
[2024-02-08] MEDS: POTASSIUM CHLORIDE CRTAB 20 MEQ TABCR PO ONE ×2 (08:20→15:41)
--- NOTE | 2024-02-08 08:47 | Gastroenterology Progress Note ---
Date of Service February 08, 2024 Assessment & Plan (1) Acute GI bleeding: Plan: 58 year old male presenting with one episode of hematemesis, reported 3 pt drop in HGB from recent OP labs, w/ elevated BUN on daily ASA recently started on once daily naproxen. S/P EGD w/ grade D esophagitis with recent bleeding, visible vessel with adherent clot, clip placed, altered blood/xufcuw-gspooc-easf material Clear liquid diet today, if remains clinically stable, may advance to soft diet tomorrow IV PPI gtt for total of 48-72 hours Then will need PPI 40 mg BID OP EGD at home in about 12 weeks No NSAIDs Trend H&H Monitor and document GI output Transfuse PRN Thank you for allowing us to participate in the care of this patient. Please call with any acute changes, questions or concerns. Please see addendum below with additional recommendation from my supervising physician. Admission and Anticipated Discharge Date Admission Date: February 07, 2024 Supervising Physician Co-Signing Physician Notes Agree with pe and plan as documented. S/p egd yesterday with findings of esophagitis and clip placement. Agree with further plan of care as documented. Subjective S/P EGD Feeling well. No further GI upset. No further report of vomiting blood. Denies any black or bloody stools. EGD 2023: - Z-line, 40 cm from the incisors. - LA Grade D esophagitis with recent bleeding. There was one area at the 3 o'clock position that was deeply cratered with a visible vessel with adherent clot. This is the likely source of his hematemesis. 1 Clip was placed. 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 - Hematin (altered blood/lpgife-anjril-jfcw material) in the entire stomach. Unable to clear the cardia or fundus to assess for any ulcers here as it was covered in thick clot. - Old clot and blood in the duodenal bulb and in the second portion of the duodenum. - No specimens collected. Review of Systems Constitutional: as per Subjective / HPI Physical Exam Constitutional: WD/WN, vitals as above Respiratory: normal respiratory effort, lungs clear to auscultation Cardiovascular: Rate/Rhythm: regular rate Gastrointestinal (Abdomen): Percussion/Palpation: abdomen soft; abdomen nontender, no guarding and abdomen not rigid Skin: no rashes, warm and dry Results & Data Vital Signs (Past 12 Hours) Vital Signs Temp Pulse Pulse Resp BP BP Pulse Ox 02/08/24 07:51 36.7 C 65 18 120/69 93 02/08/24 07:48 60 02/08/24 03:12 36.5 C 60 18 123/66 97 02/07/24 23:12 36.9 C 62 16 122/73 98 02/07/24 22:00 80 O2 Del Method 02/08/24 07:51 Room Air 02/08/24 07:48 02/08/24 03:12 CPAP 02/07/24 23:12 Room Air 02/07/24 22:00 Laboratory Results 02/08/24 02/07/24 02/07/24 Range/Units 05:41 15:49 06:15 WBC 10.63 (4.8-10.8) K/ul RBC 4.41 L (4.70-6.10) M/uL Hgb 8.8 L 9.7 L (14.0-18.0) g/dl Hct 30.6 L 34.3 L (42.0-52.0) % MCV 69.4 L (80.0-100.0) fL MCH 20.0 L (25.0-34.0) pg MCHC 28.8 L (32.0-36.0) g/dL RDW Std Deviation 45.7 (36.4-46.3) fL RDW Coeff of Carol 18.8 H (11.5-14.5) % Plt Count 448 H (130-400) K/uL MPV 9.2 L (9.4-12.4) fL Immature Gran % (Auto) 0.7 % Neut % (Auto) 69.0 % Lymph % (Auto) 21.2 % Finney % (Auto) 5.9 % Eos % (Auto) 2.4 % Baso % (Auto) 0.8 % Neut # (Auto) 7.35 H (1.40-6.50) K/uL Lymph # (Auto) 2.25 (1.20-3.40) K/uL Finney # (Auto) 0.63 H (0.11-0.59) K/uL Eos # (Auto) 0.25 (0.00-0.50) K/uL Baso # (Auto) 0.08 (0.00-0.20) K/uL Immature Gran # (Auto) 0.07 (0.01-0.20) K/uL Polychromasia 1+ Sodium 146 H (136-145) mmol/L Potassium 2.9 L (3.5-5.1) mmol/L Chloride 113 H (98-107) mmol/L Carbon Dioxide 30 (21-32) mmol/L Anion Gap 3 (3-11) BUN 27 H (6-23) mg/dl Creatinine 1.02 (0.6-1.4) mg/dl Est Cr Clr Drug Dosing 112.1 ml/min Est GFR ( Amer) 93.5 ml/min Est GFR (Non-Af Amer) 80.6 ml/min BUN/Creatinine Ratio 26.5 H (10-20) Glucose 89 (70-99(Fasting)) mg/dl Calcium 8.1 L (8.6-10.3) mg/dl Magnesium 2.1 (1.7-2.4) mg/dl Blood Type Recheck Pending
[2024-02-08] MEDS: NSS + 20MEQ KCL 20 MEQ/1,000 ML BAG IV SCH (08:51)
--- NOTE | 2024-02-08 14:49 | Hospitalist Progress Note ---
Date of Service February 08, 2024 Assessment & Plan (1) Acute GI bleeding: Plan: Patient is a 58 yr male with H/O Polycythemia, occasional acid reflux, dyslipidemia, and hypertension who presented with an episode of hematemesis this morning. He is on chronic aspirin 81 mg daily and recently started on daily Naprosyn for trigger finger (2 weeks ago). Acute GI bleed Secondary to grade D esophagitis likely from NSAIDs use --CT ABD:. No bowel obstruction or bowel wall thickening. Normal appendix. Small hiatal hernia with mild distal esophageal wall thickening. Bilateral renal cysts. A 1.8 cm intermediate density right renal lesion is suggestive of a probable complex cyst. This could be further evaluated a nonemergent renal ultrasound. Prostatomegaly. -S/P EGD:The Z-line was found 40 cm from the incisors. LA Grade D (one or more mucosal breaks involving at least 75% of esophageal circumference) esophagitis with recent bleeding was found 40 cm from the incisors. For hemostasis, one hemostatic clip was successfully placed. 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 There was no bleeding at the end of the procedure. The exam of the esophagus was otherwise normal. Hematin (altered blood/tobvux-givcrc-uuxu material) was found in the entire examined stomach. Hematin (altered blood/cwyvpi-vmyxxd-oiub material) was found in the duodenal bulb and in the second portion of the duodenum. -- Continue IV Protonix drip for 48 to 72 hours --Then transition to Protonix 40 mg twice daily Needs repeat EGD as outpatient in 12 weeks Avoid NSAIDs Monitor H&H and transfuse as needed Appreciate GI input Clear liquid diet today Right renal lesion Probable complex cyst Prostatomegaly Incidental findings on CT abdomen as above Needs follow-up as outpatient for further evaluation (2) Hypokalemia: Plan: Chronic hypokalemia Replete and monitor Check magnesium levels (3) Polycythemia: Plan: Holding aspirin due to GI bleed (4) Essential hypertension: Plan: Resume home medications as able Monitor BP (5) Dyslipidemia: Plan: Chronic, stable Resume statin as able Plan DVT Px: SCDs due to GI bleed Code Status: Full code Admission and Anticipated Discharge Date Admission Date: February 07, 2024 Subjective Patient is seen and examined at bedside Denies any bleeding issues today Also denies any chest pain, dyspnea, dizziness, nausea, vomiting, abdominal pain Discussed with patient's visitors at bedise Review of Systems Review of Systems: All systems reviewed & are unremarkable except as noted in Subjective Physical Exam Physical Exam: Physical Exam: Vitals signs as noted above General Appearance:Moderately built and nourished, no apparent distress Head: normocephalic, Atraumatic Eyes: normal inspection, EOMI Neck: supple, Trachea midline Respiratory/Chest: Normal breath sounds, CTA, No accessory muscle use Cardiovascular: S1, S2, No murmur Abdomen/GI:Soft, Non tender, Bowel sounds present Extremities/Musculoskeletal:normal inspection, no edema Neurologic/Psych:AAOX3, grossly no focal neurological deficits Skin: normal color, warm Results & Data Results & Data Vital Signs (Past 12 Hours) Vital Signs Temp Pulse Pulse Resp BP BP Pulse Ox 02/08/24 11:30 36.6 C 68 18 130/75 96 02/08/24 07:51 36.7 C 65 18 120/69 93 02/08/24 07:48 60 02/08/24 03:12 36.5 C 60 18 123/66 97 O2 Del Method 02/08/24 11:30 Room Air 02/08/24 07:51 Room Air 02/08/24 07:48 02/08/24 03:12 CPAP Laboratory Results Short CBC 02/07/24 02/08/24 02/08/24 Range/Units 15:49 05:41 14:31 WBC 10.63 (4.8-10.8) K/ul Hgb 9.7 L 8.8 L 8.5 L (14.0-18.0) g/dl Hct 34.3 L 30.6 L 30.1 L (42.0-52.0) % Plt Count 448 H (130-400) K/uL BMP 02/08/24 05:41 Sodium 146 H Potassium 2.9 L Chloride 113 H Carbon Dioxide 30 BUN 27 H Creatinine 1.02 Glucose 89 Calcium 8.1 L
[2024-02-08 14:50] LABS: Hematocrit (blood only) 30.1 % (42.0-52.0); Hemoglobin 8.5 g/dl (14.0-18.0)
[2024-02-08 15:06] LABS: Magnesium 2.1 mg/dl (1.7-2.4); Potassium 3.2 mmol/L (3.5-5.1)
[2024-02-09 06:22] LABS: Hematocrit (blood only) 29.7 % (42.0-52.0); Hemoglobin 8.4 g/dl (14.0-18.0); Mean Corpuscular Hgb Conc 28.3 g/dL (32.0-36.0); Mean Corpuscular Volume 70.9 fL (80.0-100.0); Mean Platelet Volume 8.9 fL (9.4-12.4); Platelet Count 393 K/uL (130-400); RDW Standard Deviation 46.1 fL (36.4-46.3); Red Blood Count 4.19 M/uL (4.70-6.10)
[2024-02-09 06:38] LABS: Calcium 7.9 mg/dl (8.6-10.3); Creatinine Clr Calc Pharmacy 114.1 ml/min; Est GFR (African American) 95.7 ml/min; Est GFR (Non-African American) 82.6 ml/min; Potassium 3.4 mmol/L (3.5-5.1)
[2024-02-09 08:16] LABS: Ferritin 9.1 ng/ml (8-388)
[2024-02-09] MEDS: POTASSIUM CHLORIDE CRTAB 20 MEQ TABCR PO STA (08:22)
[2024-02-09] MEDS: POTASSIUM CHLORIDE / WTR 10 MEQ/100 ML PLCT IV SCH (08:27)
[2024-02-09] MEDS: IRON SUCROSE 200 MG in 0.9 % SODIUM CHLORIDE 100 ML IV ONE (09:35)
--- NOTE | 2024-02-09 11:56 | Hospitalist Progress Note ---
Date of Service February 09, 2024 Assessment & Plan (1) Acute GI bleeding: (2) Hypokalemia: (3) Polycythemia: (4) Essential hypertension: (5) Dyslipidemia: Plan Mr. Tiwari is58 yr male with history of Polycythemia vera, occasional acid reflux, dyslipidemia, and hypertension who presented on 02/06 with an episode of hematemesis. He is on chronic aspirin 81 mg daily and recently started on daily Naprosyn for trigger finger (2 weeks ago). #Acute blood loss anemia 2/2 acute GI bleed #Grade D esophagitis likely from NSAIDs use, reflux --CT ABD:. No bowel obstruction or bowel wall thickening. Normal appendix. Small hiatal hernia with mild distal esophageal wall thickening. Bilateral renal cysts. A 1.8 cm intermediate density right renal lesion is suggestive of a probable complex cyst. This could be further evaluated a nonemergent renal ultrasound. Prostatomegaly. -S/P EGD:The Z-line was found 40 cm from the incisors. LA Grade D (one or more mucosal breaks involving at least 75% of esophageal circumference) esophagitis with recent bleeding was found 40 cm from the incisors. For hemostasis, one hemostatic clip was successfully placed. 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 There was no bleeding at the end of the procedure. The exam of the esophagus was otherwise normal. Hematin (altered blood/aygypi-fvaskx-xdut material) was found in the entire examined stomach. Hematin (altered blood/ldxrhd-smuqhf-gzax material) was found in the duodenal bulb and in the second portion of the duodenum. -- Continue IV Protonix drip, transition to PO protonix in am BID 12 weeks Needs repeat EGD as outpatient in 12 weeks Avoid NSAIDs Monitor H&H and transfuse as needed Soft diet today GI following, will arrange OP follow up #Iron deficiency Ferritin 9, Iron 19 IV venofer today #Polycythemia Vera -Hct 29.7%, Hgb 8.4 Hold ASA, follow up with Hematology upon discharge #chronic hypokalemia Hold HCTZ Replace prn #HTN Hold home PO medications, Resume amlodipine, Consider c/d HCTZ Resume lisinopril if tolerated -Hydralazine prn for BP > 175 #Right renal lesion, Probable complex cyst #Prostatomegaly Incidental findings on CT abdomen as above Needs follow-up as outpatient for further evaluation DVT Px: SCDs due to GI bleed Code Status: Full code Admission and Anticipated Discharge Date Admission Date: February 07, 2024 Subjective No acute events overnight Reports feeling much better and eager to trial soft diet Denies any nausea or hematemesis, denies any melena or other concerns Physical Exam Constitutional: WD/WN, vitals as above Respiratory: normal respiratory effort, lungs clear to auscultation Cardiovascular: RRR, no murmur, no edema Gastrointestinal (Abdomen): normal bowel sounds, soft, nontender, no hepatosplenomegaly Results & Data Results & Data Vital Signs (Past 12 Hours) Vital Signs Temp Pulse Pulse Resp BP BP Pulse Ox 02/09/24 10:38 36.5 C 73 19 132/81 94 02/09/24 07:27 61 02/09/24 07:24 36.6 C 63 20 110/70 95 02/09/24 03:21 36.6 C 70 16 135/81 99 O2 Del Method 02/09/24 10:38 Room Air 02/09/24 07:27 02/09/24 07:24 CPAP 02/09/24 03:21 Room Air, CPAP Laboratory Results Short CBC 02/08/24 02/09/24 Range/Units 14:31 06:00 WBC 10.20 (4.8-10.8) K/ul Hgb 8.5 L 8.4 L (14.0-18.0) g/dl Hct 30.1 L 29.7 L (42.0-52.0) % Plt Count 393 (130-400) K/uL BMP 02/08/24 02/09/24 14:31 06:00 Sodium 144 Potassium 3.2 L 3.4 L Chloride 112 H Carbon Dioxide 29 BUN 11 Creatinine 1.00 Glucose 100 H Calcium 7.9 L Medications Administered Home Medications Medication Instructions Recorded Confirmed Last Taken amlodipine 10 mg tablet 10 mg PO DAILY 02/07/24 02/07/24 02/06/24 aspirin 81 mg tablet,delayed 81 mg PO DAILY 02/07/24 02/07/24 02/06/24 release atorvastatin 10 mg tablet 10 mg PO Q OTHER DAY 02/07/24 02/07/24 02/05/24 hydrochlorothiazide 25 mg tablet 25 mg PO DAILY 02/07/24 02/07/24 02/06/24 lisinopril 20 mg tablet 20 mg PO DAILY 02/07/24 02/07/24 02/06/24 naproxen 500 mg tablet 500 mg PO DAILY 02/07/24 02/07/24 02/06/24 potassium chloride 20 mEq 20 meq PO DAILY 02/07/24 02/07/24 02/06/24 tablet,extended release(part/cryst) Active Medications Generic Name Dose Route Start Last Admin Trade Name Freq PRN Reason Stop Dose Admin Pantoprazole Sodium 40 mg/ 100 mls @ 20 mls/hr 02/07/24 07:15 02/09/24 10:07 Dextrose IV 03/08/24 07:14 8 mg/hr Q5H GABRIELE 20 mls/hr Infusion 8 MG/HR
[2024-02-10 07:04] LABS: Hematocrit (blood only) 33.6 % (42.0-52.0); Hemoglobin 9.4 g/dl (14.0-18.0); Mean Corpuscular Hemoglobin 19.6 pg (25.0-34.0); Mean Platelet Volume 9.3 fL (9.4-12.4); Nucleated RBC # (auto) 0.03 K/uL (0.00-0.12); Nucleated RBC % (auto) 0.3 %; Platelet Count 463 K/uL (130-400); RDW Coefficient of Variation 19.8 % (11.5-14.5); RDW Standard Deviation 45.9 fL (36.4-46.3); White Blood Count 10.33 K/ul (4.8-10.8)
[2024-02-10 07:25] LABS: BUN Creatinine Ratio 8.8 (10-20); Calcium 8.8 mg/dl (8.6-10.3); Creatinine Clr Calc Pharmacy 111.3 ml/min; Est GFR (African American) 93.5 ml/min; Est GFR (Non-African American) 80.6 ml/min; Magnesium 2.2 mg/dl (1.7-2.4); Potassium 3.2 mmol/L (3.5-5.1)
[2024-02-10] MEDS: POTASSIUM CHLORIDE CRTAB 20 MEQ TABCR PO SCH (08:32)
[2024-02-10] MEDS: amLODIPine BESYLATE 5 MG TAB PO SCH (08:33)
[2024-02-10] MEDS: lisinopril 10 MG TAB PO SCH (08:33)
[2024-02-10] MEDS: PANTOprazole 40 MG TAB PO SCH (12:11)
--- NOTE | 2024-02-10 13:05 | Discharge Summary ---
Discharge Summary Date of Service February 10, 2024 Notes For Next Care Provider Medication Changes From Visit Hold ASA until OP follow up with manager sap Hold HCTZ and discuss investigation of hypokalemia with PCP Continue amlodipine and lisinopril Start pantoprazole 40mg BID Admission HPI Per Admitting Provider This is a 58 y/o [place] who has polycythemia, occasional acid reflux, dyslipidemia, and hypertension and who presented to the ED today after an episode of hematemesis this morning. Pt has a history polycythemia for which he takes aspirin daily - his last Hgb three weeks ago was 12.9. He does require phlebotomy approximately every other month. He was recently started on Naprosyn 500 mg by his orthopedic provider for trigger finger. Only taking daily although prescribed BID. Has not noted any GI distress with taking these medications. He reports feeling off last night when he went to bed, didn't feel right overnight but couldn't localize any specific symptoms. Did note some trouble breathing, which he initially attributed to his CPAP but didn't seem to improve much with taking his CPAP off. When got up around 4:30 am, he got dizzy, nauseated, and diaphoretic, then vomited blood. He notes some vague mid-abdominal discomfort and that his abdomen is more distended than usual. Denies heartburn. Uses PRN Tums for occasional reflux but doesn't taking anything consistently for GERD. Denies melena, hematochezia, or change in bowel pattern. Symptoms seem to have improved somewhat since episode of emesis. He notes high life stresses right now. His last colonoscopy was Jan 10, 2020 - per pt, that was normal. He denies prior EGD or history of PUD. No history of H. pylori. Admission Exam Per Admitting Provider GENERAL APPEARANCE: AxOx4, generally well-appearing male, no acute distress. HEENT: NC, AT. MMM. EOMI, clear conjunctiva, oropharynx clear. NECK: Supple without lymphadenopathy. No stiffness or restricted ROM. HEART: Normal rate and regular rhythm, normal S1/S1, no m/r/g LUNGS: CTAB, moving air well. No crackles or wheezes are heard. ABDOMEN: Soft, nontender, no obvious distention with good bowel sounds heard. BACK: No CVAT, no obvious deformity. EXTREMITIES: Without cyanosis, clubbing or edema. NEUROLOGICAL: Grossly nonfocal. Alert and oriented, moving all 4 extremities. Skin: Warm and dry without any rash. Principal Dx & Hospital Course #1 = Principal Diagnosis (1) Acute GI bleeding: (2) Hypokalemia: (3) Polycythemia: (4) Essential hypertension: (5) Dyslipidemia: Plan Mr. Tiwari is58 yr male with history of Polycythemia vera, occasional acid reflux, dyslipidemia, and hypertension who presented on 02/06 with an episode of hematemesis. He is on chronic aspirin 81 mg daily and recently started on daily Naprosyn for trigger finger (2 weeks ago). Patient did not receive blood product. EGD performed on 02/06 revealed notable esophagitis and area of oozing vessel hemoclipped. Patient on PPI drip for 72 hours and discharged with PPI BID. Patient to hold ASA until hct >45 or advised by manager sap Patient to hold HCTZ given persistent hypokalemia and encouraged follow up for OP work up for low k. #Acute blood loss anemia 2/2 acute GI bleed #Grade D esophagitis likely from NSAIDs use, reflux --CT ABD:. No bowel obstruction or bowel wall thickening. Normal appendix. Small hiatal hernia with mild distal esophageal wall thickening. Bilateral renal cysts. A 1.8 cm intermediate density right renal lesion is suggestive of a probable complex cyst. This could be further evaluated a nonemergent renal ultrasound. Prostatomegaly. -S/P EGD:The Z-line was found 40 cm from the incisors. LA Grade D (one or more mucosal breaks involving at least 75% of esophageal circumference) esophagitis with recent bleeding was found 40 cm from the incisors. For hemostasis, one hemostatic clip was successfully placed. Clip faculty research physician: Bar Saint. There was no bleeding at the end of the procedure. The exam of the esophagus was otherwise normal. Hematin (altered blood/efloqb-[id number]-[id number] material) was found in the entire examined stomach. Hematin (altered blood/rknivb-gdwtmp-qawx material) was found in the duodenal bulb and in the second portion of the duodenum. -- Continue IV Protonix drip, transitioned to PO protonix in am BID 12 weeks Needs repeat EGD as outpatient in 12 weeks Avoid NSAIDs Will need to arrange OP follow up in home state Hgb on d/c 9.4 MCV 70 #Iron deficiency Ferritin 9, Iron 19 IV venofer 02/08 #Polycythemia Vera -Hct 29.7%, Hgb 8.4 Hold ASA, follow up with Hematology upon discharge #chronic hypokalemia Hold HCTZ Replace prn #HTN Hold home PO medications, Resume amlodipine, Consider c/d HCTZ Resume lisinopril if tolerated -Hydralazine prn for BP > 175 #Right renal lesion, Probable complex cyst #Prostatomegaly Incidental findings on CT abdomen as above Needs follow-up as outpatient for further evaluation On day of discharge, patient stated he feels well overall, tolerating diet, and denies any recurrent hematemesis or signs of bleeding. Discharge Exam Constitutional WD/WN, vitals as above Respiratory normal respiratory effort, lungs clear to auscultation Cardiovascular RRR, no murmur, no edema Gastrointestinal (Abdomen) normal bowel sounds, soft, nontender, no hepatosplenomegaly Updated Medication List Medication Instructions Recorded Confirmed Type amlodipine 10 mg tablet 10 mg PO DAILY 02/07/24 02/07/24 History aspirin 81 mg tablet,delayed 81 mg PO DAILY 02/07/24 02/07/24 History release atorvastatin 10 mg tablet 10 mg PO Q OTHER DAY 02/07/24 02/07/24 History hydrochlorothiazide 25 mg tablet 25 mg PO DAILY 02/07/24 02/07/24 History lisinopril 20 mg tablet 20 mg PO DAILY 02/07/24 02/07/24 History potassium chloride 20 mEq 20 meq PO DAILY 02/07/24 02/07/24 History tablet,extended release(part/cryst) pantoprazole 40 mg tablet,delayed 40 mg PO BID #60 tabs 02/10/24 Rx release Hospital Stay Data Consultations 02/07/24 09:01 ED Decision to Admit Stat 02/07/24 09:55 Consult Gastroenterology Routine 02/10/24 09:54 Burn CD for patient Stat Procedures Performed Operation Date: 02/07/24 17:00 Actual Procedures p Patient done in Main OR - Marjorie Garcia, DO Diagnostic Imagining Performed 02/07/24 07:55 CT Abd and Pelvis [CT abd pelvis IV con only] Stat Pending Results Patient Have Any Pending Studies at Discharge: No Discharge Instructions Given to Patient (Per Discharging Provider) You were admitted for vomiting blood and found to have severe esophagitis. This can be due to ongoing reflux, NSAIDS (aspirin, ibuprofen, naproxen) The Microwave Supervisor clipped an area of bleeding and recommends you take the following: -Pantoprazole 40mg two time a day for 12 weeks (until next EGD [scope] with the Microwave Supervisor) Your hematocrit on discharge was 33.6%, your hemoglobin was 9.4 It is recommended you hold aspirin until you follow up with your Archeologist or if your hematocrit increases over 45%, which ever happens first. Please hold the HCTZ and discuss your potassium and blood pressure with your PCP for further evaluation of hypokalemia. Your iron levels were very low, ferritin 9 and Iron 19. Please discuss with your Archeologist and again, ensure close follow up with Gastroenterology. Total Time Total Time Spent Total Time Spent (In Minutes): 45
== END 2024-02-10 13:07 | disposition home or self-care (01) | DRG 369 ==
LOC: ED 06:02 → EDINP 06:02 → 2S 09:56 → SUATTDRO 13:31 → 2S 13:59